=== PATIENT | male | born 1995 | race African-American/Black ===

== ENCOUNTER 2020-10-24 09:30 | Outpatient (RCR) | payer BC, SELFPAY ==
[2020-10-24 09:47] VITALS: BMI 31.4
[2020-10-24 09:50] VITALS: BMI 31.4
== END 2020-11-12 08:10 | disposition home or self-care (01) ==
LOC: ANHDMC 09:30
PROVIDERS: PCP Internal Medicine; Visit Provider Physician Assistant
DX: E10.65 Type 1 diabetes mellitus with hyperglycemia (principal); Z71.89 Other specified counseling; Z71.3 Dietary counseling and surveillance
CPT/HCPCS: 97802; G0108